=== PATIENT | female | born 1980 | race African-American/Black ===

== ENCOUNTER 2024-05-19 07:53 | Emergency (ER) | payer MEDICAID, OTHER ==
[~2024-05-19] VITALS: Ht 170.2 cm; Wt 81.8 kg
[~2024-05-19 07:53] MED LIST: CEPH-558 PO; VICOT PO
[2024-05-19 07:56] VITALS: TEMP 97.9
[2024-05-19] MEDS ORDERED: ATOR-2 PO (07:56)
[2024-05-19] MEDS ORDERED: OMEP40CA21 PO (07:56)
[2024-05-19] MEDS ORDERED: ASPI-1451 PO (07:56)
[2024-05-19] MEDS: CEPHALEXIN MONOHYDRATE 500 MG CAPSULE PO ONE (08:24)
[2024-05-19] MEDS ORDERED: CEPH-558 PO (08:30)
[2024-05-19 08:49] VITALS: BP 116/64; PULSE 75; RESP 16; O2SAT 99
== END 2024-05-19 08:50 | disposition home or self-care (01) ==
LOC: EMS 07:53
DX: I88.9 Nonspecific lymphadenitis, unspecified (principal); E78.00 Pure hypercholesterolemia, unspecified; F17.210 Nicotine dependence, cigarettes, uncomplicated; Z86.73 Personal history of transient ischemic attack (TIA), and cerebral infarction without residual deficits; Z79.899 Other long term (current) drug therapy
CPT/HCPCS: 99283